=== PATIENT | male | born 1965 | race Two or more races ===

== ENCOUNTER 2017-11-21 00:38 | Emergency (ER) | payer MEDICAID ==
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
[2017-11-21] MEDS ORDERED: KETOROLAC TROMETHAMINE 60 MG/2 ML SDV IM ONE (01:29)
[2017-11-21] MEDS ORDERED: PREDNISONE 20 MG TABLET PO ONE (01:29)
--- NOTE | 2017-11-21 01:39 | RADIOLOGY REPORT (SQ) ---
EXAM DESCRIPTION: XR LUMBAR SPINE ANTEROPOSTERIOR, LATERAL, AND OBLIQUES COMPLETED DATE/TME: 11/21/2017 00:54 CLINICAL HISTORY: 52 years, Male, back pain COMPARISON: None. NUMBER OF VIEWS: Five TECHNIQUE: Five views of the lumbar spine LIMITATIONS: None. FINDINGS: There is no acute fracture or subluxation. The vertebral heights are maintained. There is multilevel spondylosis, worse at L5-S1 with disc space narrowing, endplate sclerosis, vacuum disc phenomenon and marginal osteophytes. There is facet arthropathy of the lower lumbar spine, also worse at L5-S1. IMPRESSION: No acute fracture or subluxation. 2010 [employer]- All Rights Reserved
[2017-11-21] MEDS ORDERED: HYDROMORPHONE HCL INJ/PF 2 MG/ML AMPULE IM ONE (02:45)
[2017-11-21] MEDS ORDERED: OXYCODONE-ACETAMINOPHEN 5-325 MG TABLET PO ONE (07:56)
[2017-11-21 08:48] VITALS: BP 150/89
== END 2017-11-21 08:45 | disposition home or self-care (01) ==
LOC: ER 00:38
DX: M54.5 Low back pain (principal); X50.1XXA Overexertion from prolonged static or awkward postures, initial encounter; Y93.89 Activity, other specified; I10 Essential (primary) hypertension; R20.2 Paresthesia of skin; E11.9 Type 2 diabetes mellitus without complications; F17.210 Nicotine dependence, cigarettes, uncomplicated
CPT/HCPCS: 99284; 96372; 72110; J1885; J1170; J7512

== ENCOUNTER 2017-12-19 05:45 | Emergency (ER) | payer MEDICAID ==
[2017-12-19] MEDS ORDERED: KETOROLAC TROMETHAMINE 60 MG/2 ML SDV IM ONE ×2 (06:18→07:40)
[2017-12-19] MEDS ORDERED: FENTANYL CITRATE INJ/PF 100 MCG/2 ML AMPUL IM ONE ×2 (06:18→07:40)
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
--- NOTE | 2017-12-19 07:39 | RADIOLOGY REPORT (SQ) ---
CT abdomen and pelvis without contrast on 12/19/2017 at 7:07 AM CLINICAL INDICATION: Bilateral back pain, hematuria TECHNIQUE: Multiple axial images are obtained throughout the abdomen and pelvis without the administration of contrast. This exam was performed according to our departmental dose-optimization program, which includes automated exposure control, adjustment of the mA and/or kV according to patient size and/or use of iterative reconstruction technique. Total DLP is 259.36 mGy*cm. COMPARISON: None FINDINGS: Abdomen: The lung bases are clear. There are no renal or ureteral stones and no hydronephrosis. Vascular calcifications are noted. The unenhanced solid abdominal organs are unremarkable. There is no abdominal adenopathy. There is no free fluid or free air within the abdomen. The abdominal portion of the GI tract is unremarkable. Pelvis: There is no free fluid in the pelvis. There is no pelvic adenopathy. The pelvic portion of the GI tract including the appendix is unremarkable. Degenerative changes are noted in the spine. IMPRESSION: No acute abnormality.
[2017-12-19 07:59] LABS: APPEARANCE,URINE CLEAR; BILIRUBIN,URINE NEGATIVE (NEGATIVE); COLOR,URINE STRAW; GLUCOSE, URINE NEGATIVE (NEGATIVE); KETONES,URINE NEGATIVE (NEGATIVE); LEUKOCYTE ESTERASE,URINE NEGATIVE (NEGATIVE); NITRITE,URINE NEGATIVE (NEGATIVE); PROTEIN,URINE NEGATIVE (NEGATIVE); URINE SPECIFIC GRAVITY 1.005
[2017-12-19 08:39] VITALS: BP 158/90
[2017-12-19 11:14] LABS: CHLAM PCR NOT DETECTED (NOT DETECT); GON PCR NOT DETECTED (NOT DETECT)
== END 2017-12-19 08:25 | disposition home or self-care (01) ==
LOC: ER 05:45
DX: M51.16 Intervertebral disc disorders with radiculopathy, lumbar region (principal); E11.9 Type 2 diabetes mellitus without complications; I10 Essential (primary) hypertension; F17.210 Nicotine dependence, cigarettes, uncomplicated
CPT/HCPCS: 99284; 96372; 87086; 81001; 87491; 87591; 76380; J1885; J3010

== ENCOUNTER 2018-10-27 19:34 | Emergency (ER) | payer MEDICAID ==
[2018-10-27 19:43] VITALS: BP 129/82
== END 2018-10-27 21:10 | disposition left against medical advice (07) ==
LOC: ER 19:34
DX: Z53.21 Procedure and treatment not carried out due to patient leaving prior to being seen by health care provider (principal); R68.84 Jaw pain

== ENCOUNTER 2019-02-02 07:55 | Emergency (ER) | payer MEDICAID ==
[2019-02-02] MEDS ORDERED: METHYLPREDNISOLONE INJ 125 MG/2 ML SDV IV ONE (11:01)
[2019-02-02] MEDS ORDERED: MORPHINE SULFATE 10 MG/ML INJ IV ONE (11:02)
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
[2019-02-02 12:41] VITALS: BP 156/83
== END 2019-02-02 12:38 | disposition home or self-care (01) ==
LOC: ER 07:55
DX: M54.5 Low back pain (principal); M54.9 Dorsalgia, unspecified; G89.29 Other chronic pain; F17.210 Nicotine dependence, cigarettes, uncomplicated; I25.2 Old myocardial infarction; I10 Essential (primary) hypertension; E11.9 Type 2 diabetes mellitus without complications
CPT/HCPCS: 99283; 96374; 96375; J2930; J2270

== ENCOUNTER 2019-03-18 23:58 | Emergency (ER) | payer MEDICAID ==
[2019-03-19] MEDS ORDERED: NORMAL SALINE 1000 ML 1,000 ML IV ONE (05:37)
[2019-03-19] MEDS ORDERED: MORPHINE SULFATE 10 MG/ML INJ IV ONE (05:38)
[2019-03-19] MEDS ORDERED: ONDANSETRON HCL INJ/PF 4 MG/2 ML SDV IV ONE (05:39)
[2019-03-19] MEDS ORDERED: DEXAMETHASONE SOD PHOSPHATE INJ 4 MG/1 ML VIAL IV ONE (05:39)
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
[2019-03-19 05:59] LABS: ABSOLUTE BASOPHILS # (AUTO) 0.1 10^3/uL (0.0-0.2); ABSOLUTE EOSINOPHILS # (AUTO) 0.1 10^3/uL (0.0-0.6); ABSOLUTE LYMPHOCYTES (AUTO) 2.7 10^3/uL (0.5-4.7); ABSOLUTE MONOCYTES (AUTO) 0.4 10^3/uL (0.1-1.4); ABSOLUTE NEUT (AUTO) 3.4 10^3/uL (1.7-8.2); APPEARANCE,URINE CLEAR; BILIRUBIN,URINE NEGATIVE (NEGATIVE); COLOR,URINE STRAW; EOSINOPHILS % (AUTO) 0.9 % (0-6); GLUCOSE, URINE NEGATIVE (NEGATIVE); HEMATOCRIT 43.6 % (37.9-51.0); HEMOGLOBIN 14.7 g/dL (13.5-17.0); KETONES,URINE NEGATIVE (NEGATIVE); LEUKOCYTE ESTERASE,URINE NEGATIVE (NEGATIVE); LYMPHOCYTES % (AUTO) 41.2 % (13-45); MEAN CORPUSCULAR HEMOGLOBIN 31.3 pg (27.0-33.4); MEAN CORPUSCULAR HGB CONC 33.8 g/dL (32.0-36.0); MEAN CORPUSCULAR VOLUME 93 fl (80-97); MONOCYTES % (AUTO) 5.7 % (3-13); NITRITE,URINE NEGATIVE (NEGATIVE); PLATELET COUNT 344 10^3/uL (150-450); PROTEIN,URINE NEGATIVE (NEGATIVE); RED BLOOD COUNT 4.71 10^6/uL (4.35-5.55); RED CELL DISTRIBUTION WIDTH 13.8 % (11.5-14.0); SEGMENTED NEUTROPHILS % (AUTO) 51.2 % (42-78); TOTAL CELLS COUNTED % (AUTO) 100 %; URINE SPECIFIC GRAVITY 1.003; UROBILINOGEN,URINE NEGATIVE mg/dL (<2.0); WHITE BLOOD COUNT 6.6 10^3/uL (4.0-10.5)
[2019-03-19 06:15] LABS: URINE AMPHETAMINES SCREEN NEGATIVE; URINE BARBITURATES SCREEN NEGATIVE; URINE BENZODIAZEPINES SCREEN NEGATIVE; URINE COCAINE SCREEN NEGATIVE; URINE MARIJUANA (THC) SCREEN NEGATIVE; URINE METHADONE SCREEN NEGATIVE; URINE PHENCYCLIDINE SCREEN NEGATIVE
[2019-03-19 06:16] LABS: ALBUMIN 4.5 g/dL (3.5-5.0); ALCOHOL 123 mg/dL (NONE DETECTED); ALKALINE PHOSPHATASE 67 U/L (38-126); ANION GAP 12 (5-19); ASPARTATE AMINO TRANSFERASE 54 U/L (17-59); BILIRUBIN,DIRECT 0.2 mg/dL (0.0-0.4); BILIRUBIN,TOTAL 0.8 mg/dL (0.2-1.3); BLOOD UREA NITROGEN 9 mg/dL (7-20); CALCIUM 9.5 mg/dL (8.4-10.2); CARBON DIOXIDE 24 mmol/L (22-30); CHLORIDE 102 mmol/L (98-107); GLUCOSE 77 mg/dL (75-110); POTASSIUM 4.4 mmol/L (3.6-5.0); TOTAL PROTEIN 7.6 g/dL (6.3-8.2)
--- NOTE | 2019-03-19 06:57 | RADIOLOGY REPORT (SQ) ---
CT of the lumbar spine: 03/19/2019 5:50 AM [employer] TECHNIQUE: Multiple axial contiguous images were obtained through the lumbar spine without intravenous contrast administered. Coronal and sagittal reconstructed images were also obtained and examined. This exam was performed according to our departmental dose-optimization program, which includes automated exposure control, adjustment of the mA and/or KV according to the patient's size and/or use of iterative reconstruction technique. HISTORY: 53-year-old patient with lower back pain. COMPARISON:None available FINDINGS: The visualized vertebral bodies appear to be well aligned. No significant loss of vertebral body height is seen. Moderate intervertebral disc space narrowing is seen. Multilevel disc osteophytes are seen at the lumbar spine. There is mild to moderate bilateral neural foraminal narrowing seen from L3/L4 and L5/S1. There may be some thecal sac compression at these levels due to disc osteophytes. The visualized sacroiliac joints appear grossly unremarkable. There are no findings to suggest an acute fracture or subluxation. The visualized intrapelvic organs also appear unremarkable. There are no findings to suggest hydronephrosis. IMPRESSION: There are no findings to suggest an acute fracture or subluxation of the lumbar spine. There are multilevel degenerative changes seen at the lower lumbar spine.
[2019-03-19 08:35] VITALS: BP 148/75
== END 2019-03-19 08:36 | disposition home or self-care (01) ==
LOC: ER 23:58
DX: M54.40 Lumbago with sciatica, unspecified side (principal); F17.200 Nicotine dependence, unspecified, uncomplicated; I10 Essential (primary) hypertension; Z86.73 Personal history of transient ischemic attack (TIA), and cerebral infarction without residual deficits
CPT/HCPCS: 99284; 96361; 96374; 96375; 36415; 80307 ×2; 85025; 80053; 81001; 72131; J1100; J2270; J2405; J7030

== ENCOUNTER 2019-10-20 18:24 | Emergency (ER) | payer MEDICAID ==
[2019-10-20 18:46] LABS: ABSOLUTE BASOPHILS # (AUTO) 0.1 10^3/uL (0.0-0.2); ABSOLUTE EOSINOPHILS # (AUTO) 0.1 10^3/uL (0.0-0.6); ABSOLUTE MONOCYTES (AUTO) 0.6 10^3/uL (0.1-1.4); ABSOLUTE NEUT (AUTO) 5.4 10^3/uL (1.7-8.2); BASOPHILS % (AUTO) 0.9 % (0-2); EOSINOPHILS % (AUTO) 0.8 % (0-6); HEMATOCRIT 37.2 % (37.9-51.0); HEMOGLOBIN 12.8 g/dL (13.5-17.0); LYMPHOCYTES % (AUTO) 24.4 % (13-45); MEAN CORPUSCULAR HEMOGLOBIN 32.1 pg (27.0-33.4); MEAN CORPUSCULAR HGB CONC 34.4 g/dL (32.0-36.0); MEAN CORPUSCULAR VOLUME 94 fl (80-97); MONOCYTES % (AUTO) 7.7 % (3-13); PLATELET COUNT 293 10^3/uL (150-450); RED BLOOD COUNT 3.98 10^6/uL (4.35-5.55); SEGMENTED NEUTROPHILS % (AUTO) 66.2 % (42-78); TOTAL CELLS COUNTED % (AUTO) 100 %; WHITE BLOOD COUNT 8.1 10^3/uL (4.0-10.5)
[2019-10-20 19:03] LABS: ALBUMIN 4.1 g/dL (3.5-5.0); ALKALINE PHOSPHATASE 50 U/L (38-126); ANION GAP 13 (5-19); ASPARTATE AMINO TRANSFERASE 23 U/L (17-59); BILIRUBIN,DIRECT 0.2 mg/dL (0.0-0.4); BILIRUBIN,TOTAL 0.9 mg/dL (0.2-1.3); BLOOD UREA NITROGEN 10 mg/dL (7-20); CALCIUM 9.2 mg/dL (8.4-10.2); CARBON DIOXIDE 23 mmol/L (22-30); CHLORIDE 100 mmol/L (98-107); CREATINE KINASE 336 U/L (55-170); GLUCOSE 107 mg/dL (75-110); POTASSIUM 4.2 mmol/L (3.6-5.0); TOTAL PROTEIN 7.1 g/dL (6.3-8.2)
--- NOTE | 2019-10-20 19:11 | RADIOLOGY REPORT (SQ) ---
EXAM DESCRIPTION: CHEST SINGLE VIEW IMAGES COMPLETED DATE/TIME: 10/20/2019 6:52 pm REASON FOR STUDY: chest pain COMPARISON: Chest radiograph 08/21/2011 NUMBER OF VIEWS: One view. TECHNIQUE: Single frontal radiographic view of the chest acquired. LIMITATIONS: None. FINDINGS: LUNGS AND PLEURA: Streaky opacities at the bilateral lung bases likely represent atelectas is. Otherwise, no focal consolidation. No pleural effusion or pneumothorax. MEDIASTINUM AND HILAR STRUCTURES: No masses. Contour normal. HEART AND VASCULAR STRUCTURES: Heart normal in size. Normal vasculature. BONES: No acute findings. HARDWARE: None in the chest. OTHER: No other significant finding. IMPRESSION: Probable bibasilar atelectasis. Otherwise, no acute pulmonary process. TECHNICAL DOCUMENTATION: JOB ID: [id number] 2010 [employer]- All Rights Reserved Reading location - IP/workstation name: [email or web address]
[2019-10-20 19:13] LABS: CREATINE KINASE MB 3.27 ng/mL (<4.55); NT PRO BNP 62 pg/mL (<125)
[2019-10-20 19:15] LABS: TROPONIN I < 0.012 ng/mL
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
[2019-10-20] MEDS ORDERED: DIAZEPAM INJ 10 MG/2 ML DISP.SYRIN IV ONE (19:41)
--- NOTE | 2019-10-20 20:25 | EKG REPORT ---
SEVERITY:- ABNORMAL ECG - SINUS TACHYCARDIA LEFT ATRIAL ABNORMALITY CONSIDER ANTEROSEPTAL INFARCT, POSSIBLY ACUTE LATERAL LEADS ARE ALSO INVOLVED : Confirmed by: Jaylon Terry 20-Oct-2019 20:24:43
--- NOTE | 2019-10-20 20:51 | RADIOLOGY REPORT (SQ) ---
PROCEDURE: CLINICAL HISTORY: 54 years Male central chest/back pain, eval dissection COMPARISON: None. TECHNIQUE: Contiguous axial images obtained through the chest, abdomen and pelvis during the infusion of IV contrast. Reformatted images obtained. 3-D MIP reformatted images obtained. NASCET criteria utilized for the evaluation of any stenotic lesions. This exam was performed according to our department optimization program which includes automated exposure control, adjustment of the mA and/or kv according to patient size and/or use of iterative reconstruction technique. FINDINGS: Chest: The thoracic aorta is normal in caliber without dissection or rupture. No pericardial or pleural effusion. No significant mediastinal or hilar adenopathy. No evidence to suggest pulmonary embolus on the images provided. No pneumothorax. Atelectasis in both lung bases. No lobar consolidation or groundglass infiltrate. Abdomen pelvis: The abdominal aorta is normal in caliber without dissection or rupture. Celiac axis, SMA and the renal arteries are widely patent. Calcification is present in the distal aorta without significant stenosis. Common iliac arteries and external iliac arteries are patent. Adrenal glands, pancreas, spleen and kidneys are unremarkable. Fatty infiltration of the liver. Contracted gallbladder. Diverticulosis without evidence of diverticulitis. Unremarkable appendix. Multilevel degenerative change in the thoracic and the lumbar spine. IMPRESSION: No evidence of thoracic or abdominal aortic aneurysm and no evidence of dissection Fatty liver Diverticulosis Degenerative changes in the spine
[2019-10-20] MEDS ORDERED: KETOROLAC TROMETHAMINE INJ/PF 30 MG/1 ML SDV IV ONE (23:23)
[2019-10-20 23:46] LABS: APPEARANCE,URINE CLEAR; BILIRUBIN,URINE NEGATIVE (NEGATIVE); COLOR,URINE YELLOW; GLUCOSE, URINE NEGATIVE (NEGATIVE); KETONES,URINE NEGATIVE (NEGATIVE); LEUKOCYTE ESTERASE,URINE TRACE (NEGATIVE); NITRITE,URINE NEGATIVE (NEGATIVE); PROTEIN,URINE NEGATIVE (NEGATIVE)
[2019-10-20 23:55] LABS: URINE SPECIFIC GRAVITY > 1.060
[2019-10-21 00:08] VITALS: BP 123/80
[2019-10-21 00:11] LABS: URINE AMPHETAMINES SCREEN NEGATIVE; URINE BARBITURATES SCREEN NEGATIVE; URINE BENZODIAZEPINES SCREEN NEGATIVE; URINE COCAINE SCREEN NEGATIVE; URINE MARIJUANA (THC) SCREEN NEGATIVE; URINE METHADONE SCREEN NEGATIVE; URINE PHENCYCLIDINE SCREEN NEGATIVE
== END 2019-10-21 00:08 | disposition home or self-care (01) ==
LOC: ER 18:24
DX: M47.814 Spondylosis without myelopathy or radiculopathy, thoracic region (principal); M47.816 Spondylosis without myelopathy or radiculopathy, lumbar region; M54.6 Pain in thoracic spine; R00.0 Tachycardia, unspecified; R50.9 Fever, unspecified; K76.0 Fatty (change of) liver, not elsewhere classified; K57.90 Diverticulosis of intestine, part unspecified, without perforation or abscess without bleeding; I25.2 Old myocardial infarction; I10 Essential (primary) hypertension; E11.9 Type 2 diabetes mellitus without complications; Z20.828 Contact with and (suspected) exposure to other viral communicable diseases
CPT/HCPCS: 93005; 99284; 96374; 96375; 36415; 82553; 82550; 85025; 87635; 86140; 80053; 81001; 84484; 80307; 83880; 71045; 71275; 74174; 93010; J3360; J1885; C9803

== ENCOUNTER 2020-03-23 12:45 | Emergency (ER) | payer MEDICAID ==
[2020-03-23] MEDS ORDERED: KETOROLAC TROMETHAMINE 60 MG/2 ML SDV IM ONE (14:08)
[2020-03-23] MEDS ORDERED: OXYCODONE-ACETAMINOPHEN 5-325 MG TABLET PO ONE (14:08)
[2020-03-23] MEDS ORDERED: DEXAMETHASONE 4 MG TABLET PO ONE (14:08)
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
[2020-03-23 14:59] VITALS: BP 124/76
--- NOTE | 2020-03-23 16:46 | EKG REPORT ---
SEVERITY:- ABNORMAL ECG - SINUS RHYTHM PROBABLE LEFT ATRIAL ABNORMALITY ANTERIOR INFARCT, POSSIBLY ACUTE LATERAL LEADS ARE ALSO INVOLVED : Confirmed by: Asif Malone MD 23-Mar-2020 16:45:13
== END 2020-03-23 14:52 | disposition home or self-care (01) ==
LOC: ER 12:45
DX: G89.29 Other chronic pain (principal); M54.41 Lumbago with sciatica, right side; F17.200 Nicotine dependence, unspecified, uncomplicated; I10 Essential (primary) hypertension; E11.9 Type 2 diabetes mellitus without complications
CPT/HCPCS: 93005; 99284; 96372; 93010; J3490; J1885; J8540